=== PATIENT | female | born 1975 | race Two or more races ===

== ENCOUNTER → 2024-04-13 | Outpatient (CLI) | payer OTHER, SELFPAY ==
--- NOTE | 2024-04-13 10:45 | XR_ITS ---
Examination: Diagnostic digital mammography, unilateral, left Computer aided detection 3-D breast Tomosynthesis, unilateral Date and time of exam: April 13, 2024 1014 hours INDICATIONS: Outside mammogram August 04, 2023 14 mm focal asymmetry 12:00 position left breast Technique: Nonmagnified MLO, CC views of the left breast have been obtained, reconstructed from 3-D Tomosynthesis images. R2 computer aided detection program utilized for evaluation of suspicious masses and/or abnormal calcifications. 3-D Tomosynthesis images obtained. Findings: The breast is heterogeneously dense, which may obscure small masses Circumscribed nodule 13 mm nipple level left breast, suspicious for a cyst with 10 mm circumscribed nodule outer left breast which may also represent a cyst Impression: BI-RADS category 0: Incomplete: Need additional imaging evaluation Recommend repeat left breast sonography follow-up
== END | disposition home or self-care (01) ==
LOC: CDIM 10:04
PROVIDERS: PCP Registered Nurse; Referring Provider Registered Nurse; Visit Provider Registered Nurse
DX: R92.8 Other abnormal and inconclusive findings on diagnostic imaging of breast (principal)
CPT/HCPCS: 77061; 77065; G0279

== ENCOUNTER → 2024-12-05 | Outpatient (CLI) | payer OTHER, SELFPAY ==
--- NOTE | 2024-12-05 13:30 | XR_ITS ---
Examination: Breast ultrasound, unilateral, left complete Date and time of exam: December 05, 2024 1405 hours INDICATIONS: Mammogram April 13, 2024 13 mm nodule nipple level left breast Technique: Real-time ballard scale ultrasonographic imaging performed left breast including all 4 quadrants as well as nipple retroareolar and axillary region. Findings: 4:00 cyst 24 x 24 mm No solid nodules Smaller cysts IMPRESSION: BI-RADS Category 2: Benign findings
--- NOTE | 2024-12-05 14:02 | XR_ITS ---
Examination: Diagnostic digital mammography, bilateral Computer aided detection 3-D breast Tomosynthesis, bilateral Date and time of exam: December 05, 2024 1414 hours, compared to mammograms dating to JulyMay 01, 2016 INDICATIONS: Circumscribed nodule 13 mm nipple level left breast 10 mm circumscribed nodule outer left breast on mammogram April 13, 2024 Technique: Nonmagnified MLO, CC views of the breasts to been obtained, reconstructed from 3-D Tomosynthesis images. R2 computer aided detection program utilized for evaluation of suspicious masses and/or abnormal calcifications. 3-D Tomosynthesis images obtained. Findings: The breasts are heterogeneously dense, which may obscure small masses Circumscribed nodule 4:00 position left breast, 24 mm, corresponding to cyst described on left breast sonogram today 8mm, 5 mm nodular asymmetries inner right breast on the CC view, probably nipple level on the right MLO view Impression: BI-RADS Category 0: Incomplete: Need additional imaging evaluation Recommend follow-up spot tomographic views of 8 mm 5 mm nodular asymmetries 3:00 position right breast as well as right breast sonography to complete the workup.
== END | disposition home or self-care (01) ==
PROVIDERS: PCP Registered Nurse; Referring Provider Registered Nurse; Visit Provider Registered Nurse
DX: N64.89 Other specified disorders of breast (principal)
CPT/HCPCS: 76641; 77062; 77066; G0279

== ENCOUNTER → 2025-02-13 | Outpatient (CLI) | payer OTHER, SELFPAY ==
--- NOTE | 2025-02-13 09:30 | XR_ITS ---
Examination: Breast ultrasound, unilateral, right complete Date and time of exam: February 13, 2025, 0933 hours INDICATIONS: Mammogram December 05, 2024 8 mm 5 mm nodular asymmetries inner right breast Technique: Real-time ballard scale ultrasonographic imaging performed right breast including all 4 quadrants as well as nipple retroareolar and axillary region. Findings: 8:00 cyst 14 x 10 mm 9:00 cyst 11 x 10 mm 10:00 cyst 10 x 6 mm No solid nodules Smaller cysts IMPRESSION: BI-RADS Category 2: Benign findings
--- NOTE | 2025-02-13 10:00 | XR_ITS ---
Examination: Diagnostic digital mammography, unilateral, right Computer aided detection 3-D breast Tomosynthesis, unilateral Date and time of exam: February 13, 2025, 0955 hours INDICATIONS: 8 mm 5 mm nodular asymmetries 3 o'clock position right breast on mammogram 12/05/2024 Technique: Nonmagnified MLO, CC views of the left breast have been obtained, reconstructed from 3-D Tomosynthesis images. R2 computer aided detection program utilized for evaluation of suspicious masses and/or abnormal calcifications. 3-D Tomosynthesis images obtained. Findings: Right the breast is heterogeneously dense, which may obscure small masses No suspicious nodules are depicted on the spot compression views, right breast sonogram today indicates benign 8:00 9:00 10:00 axis Impression: BI-RADS category 2: Benign findings Return to yearly follow-up mammography
== END | disposition home or self-care (01) ==
LOC: CDIM 09:13
PROVIDERS: PCP Registered Nurse; Referring Provider Registered Nurse; Visit Provider Registered Nurse
DX: R92.321 Mammographic fibroglandular density, right breast (principal)
CPT/HCPCS: 76641; 77061; 77065; G0279